=== PATIENT | female | born 1995 | race Caucasian/White ===

== ENCOUNTER → 2017-10-23 | Outpatient (CLI) | payer BC ==
[2017-10-23 18:15] LABS: Basophils % (A) 1 %; Eosinophils # (A) 0.1 k/uL (0-0.7); Eosinophils % (A) 2 %; HCT 42.8 % (34.0-46.0); HGB 13.1 gm/dL (11.4-16.0); Lymphocytes # (A) 1.5 k/uL (1.0-4.8); Lymphocytes % (A) 31 %; MCHC 30.6 g/dL (31.0-37.0); MCV 91.4 fL (80.0-100.0); Mean Platelet Volume 8.2; Monocytes # (A) 0.3 k/uL (0-1.0); Monocytes % (A) 6 %; Neutrophils # (A) 2.9 k/uL (1.3-7.7); Neutrophils % (A) 59 %; Platelet Count 341 k/uL (150-450); RBC 4.68 m/uL (3.80-5.40); RDW 12.7 % (11.5-15.5); WBC 4.8 k/uL (3.8-10.6)
[2017-10-23 18:34] LABS: ALT 19 U/L (9-52); AST 22 U/L (14-36); Albumin 4.3 g/dL (3.5-5.0); Alkaline Phosphatase 58 U/L (38-126); Anion Gap 10 mmol/L; Blood Urea Nitrogen 14 mg/dL (7-17); Calcium 9.5 mg/dL (8.4-10.2); Carbon Dioxide 27 mmol/L (22-30); Chloride 102 mmol/L (98-107); Cholesterol 133 mg/dL (<200); Glucose 79 mg/dL (74-99); HDL Cholesterol 60 mg/dL (40-60); LDL Cholesterol,Calculated 65 mg/dL (0-99); Potassium 4.6 mmol/L (3.5-5.1); Sodium 139 mmol/L (137-145); Total Bilirubin 0.7 mg/dL (0.2-1.3); Triglycerides 38 mg/dL (<150)
[2017-10-24 00:56] LABS: Vitamin D 25 Hydroxy 9.9 ng/mL (30.0-100.0)
[2017-10-24 01:15] LABS: HIV AB P24 Non-Reactive (Non-Reactive); HIV P24 AG Non-Reactive (Non-Reactive)
[2017-10-24 01:45] LABS: Hepatitis A Antibody IgM Non-Reactive (Non-Reactive); Hepatitis B Core IgM Non-Reactive (Non-Reactive)
== END | disposition home or self-care (01) ==
LOC: MMGSC 09:59
PROVIDERS: ATTEND Family Medicine
DX: Z00.00 Encounter for general adult medical examination without abnormal findings (principal)
CPT/HCPCS: 36415; 80053; 80061; 80074; 82306; 82607; 84443; 85025; 87390

== ENCOUNTER → 2023-03-28 | Outpatient (CLI) | payer BC | END | disposition home or self-care (01) | LOC: LABWHC1 11:53 | PROVIDERS: ATTEND Obstetrics & Gynecology Obstetrics | DX: O20.0 Threatened abortion (principal); Z3A.00 Weeks of gestation of pregnancy not specified | CPT/HCPCS: 36415; 84702 ==

== ENCOUNTER → 2023-04-01 | Outpatient (CLI) | payer BC | END | disposition home or self-care (01) | LOC: LABWHC1 15:18 | PROVIDERS: ATTEND Obstetrics & Gynecology Obstetrics | DX: O20.0 Threatened abortion (principal); Z3A.00 Weeks of gestation of pregnancy not specified | CPT/HCPCS: 36415; 84702 ==

== ENCOUNTER → 2023-04-05 | Outpatient (CLI) | payer BC ==
[2023-04-05 16:02] LABS: Blood Urea Nitrogen 12.3 mg/dL (9.0-27.0)
[2023-04-05 16:03] LABS: ALT 12 U/L (8-44); AST 18 U/L (13-35)
[2023-04-05 16:07] LABS: HCT 43.2 % (37.2-46.3); HGB 14.2 d/dL (12.0-15.0); MCH 29.6 pg (27.0-32.0); MCHC 32.9 d/dL (32.0-37.0); MCV 90.2 FL (80.0-97.0); Mean Platelet Volume 10.5 FL (9.5-12.2); NRBC Per 100 WBC 0 X 10*3/uL (0.00-0.01); Platelet Count 362 X 10*3/uL (140-440); RBC 4.79 X 10*6/uL (4.10-5.20); RDW 12.4 % (11.5-14.5); WBC 10.49 X 10*3/uL (4.50-10.00)
== END | disposition home or self-care (01) ==
LOC: LABWHC1 08:47
PROVIDERS: ATTEND Obstetrics & Gynecology Obstetrics
DX: O00.109 Unspecified tubal pregnancy without intrauterine pregnancy (principal); Z3A.00 Weeks of gestation of pregnancy not specified
CPT/HCPCS: 36415; 82565; 84450; 84460; 84520; 84702; 85027

== ENCOUNTER → 2023-04-05 | Outpatient (CLI) | payer BC ==
[~2023-04-05] MED LIST: METHOTREXATE SODIUM (PF) 25 MG/ML 2 ML VIAL IM NR
[2023-04-05 10:24] VITALS: BP 123/83; PULSE 80; RESP 16; TEMP 98.2
== END ==
LOC: PROCWHC3 10:10
PROVIDERS: ATTEND Obstetrics & Gynecology Obstetrics
DX: O00.109 Unspecified tubal pregnancy without intrauterine pregnancy (principal)
CPT/HCPCS: 96401; J9260; 96402

== ENCOUNTER → 2023-04-08 | Outpatient (CLI) | payer BC | END | disposition home or self-care (01) | LOC: LABWHC1 15:09 | PROVIDERS: ATTEND Obstetrics & Gynecology Obstetrics | DX: O00.109 Unspecified tubal pregnancy without intrauterine pregnancy (principal); Z3A.00 Weeks of gestation of pregnancy not specified | CPT/HCPCS: 36415; 84702 ==

== ENCOUNTER → 2023-04-11 | Outpatient (CLI) | payer BC ==
[2023-04-11 20:28] LABS: ALT 12 U/L (8-44); AST 19 U/L (13-35); Blood Urea Nitrogen 11.7 mg/dL (9.0-27.0); HCG,Quantitative Serum 47.6 mIU/mL (0.0-6.0)
[2023-04-11 21:17] LABS: HCT 39.3 % (37.2-46.3); HGB 12.5 d/dL (12.0-15.0); MCH 29.2 pg (27.0-32.0); MCHC 31.8 d/dL (32.0-37.0); MCV 91.8 FL (80.0-97.0); Mean Platelet Volume 10.7 FL (9.5-12.2); NRBC Per 100 WBC 0 X 10*3/uL (0.00-0.01); Platelet Count 317 X 10*3/uL (140-440); RBC 4.28 X 10*6/uL (4.10-5.20); RDW 12.5 % (11.5-14.5); WBC 9.24 X 10*3/uL (4.50-10.00)
== END | disposition home or self-care (01) ==
LOC: LABWHC1 15:13
PROVIDERS: ATTEND Obstetrics & Gynecology Obstetrics
DX: O00.109 Unspecified tubal pregnancy without intrauterine pregnancy (principal); Z3A.00 Weeks of gestation of pregnancy not specified
CPT/HCPCS: 36415; 82565; 84450; 84460; 84520; 84702; 85027

== ENCOUNTER → 2023-04-19 | Outpatient (CLI) | payer BC | END | disposition home or self-care (01) | LOC: LABWHC1 14:53 | PROVIDERS: ATTEND Obstetrics & Gynecology Obstetrics | DX: O00.90 Unspecified ectopic pregnancy without intrauterine pregnancy (principal); Z3A.00 Weeks of gestation of pregnancy not specified | CPT/HCPCS: 36415; 84702 ==

== ENCOUNTER → 2023-05-10 | Outpatient (CLI) | payer BC | END | disposition home or self-care (01) | LOC: LABWHC1 15:45 | PROVIDERS: ATTEND Obstetrics & Gynecology Obstetrics | DX: O00.90 Unspecified ectopic pregnancy without intrauterine pregnancy (principal); Z3A.00 Weeks of gestation of pregnancy not specified | CPT/HCPCS: 36415; 84702 ==

== ENCOUNTER → 2024-03-25 | Outpatient (CLI) | payer BC ==
--- NOTE | 2024-03-25 14:57 | FL ---
EXAMINATION TYPE: FL hysterosalpingography DATE OF EXAM: 03/25/2024 HISTORY: Infertility. Informed consent was obtained and all the patient's questions were answered. Preliminary film of the pelvis reveals no distinct abnormality. A speculum was introduced and the external cervical os was l ocalize. The external cervical os was cleansed and a Betadine solution on 3 occasions. Hysterosalpi ngography catheter was introduced into the uterus and balloon insufflation device deployed. Approxim ately 12 cc of nonionic contrast was injected in a retrograde manner. The uterus has a normal size shape and appearance. No persistent uterine filling defects are seen. Both fallopian tubes fill with contrast normally. There is spill of contrast into the peritoneal cav ity bilaterally left greater than right. IMPRESSION: Normal hysterosalpingogram with bilateral spill of contrast into the peritoneal cavity.
== END | disposition home or self-care (01) ==
LOC: RADUSWWP 13:10
PROVIDERS: ATTEND Obstetrics & Gynecology Obstetrics
DX: N97.9 Female infertility, unspecified (principal); Z87.59 Personal history of other complications of pregnancy, childbirth and the puerperium
CPT/HCPCS: 58340; 74740; Q9967

== ENCOUNTER → 2024-04-29 | Outpatient (CLI) | payer BC ==
[2024-04-29 15:13] LABS: HCT 44.3 % (37.2-46.3); HGB 14.3 g/dL (12.0-15.0); MCH 29.1 pg (27.0-32.0); MCHC 32.3 g/dL (32.0-37.0); MCV 90.2 FL (80.0-97.0); Mean Platelet Volume 10.4 FL (9.5-12.2); NRBC Per 100 WBC 0 X 10*3/uL (0.00-0.01); Platelet Count 362 X 10*3/uL (140-440); RBC 4.91 X 10*6/uL (4.10-5.20); RDW 12.5 % (11.5-14.5); WBC 7.95 X 10*3/uL (4.50-10.00)
[2024-04-29 16:18] LABS: ALT 13 U/L (8-44); AST 18 U/L (13-35); Blood Urea Nitrogen 8.6 mg/dL (9.0-27.0)
== END | disposition home or self-care (01) ==
LOC: LABWHC1 09:40
PROVIDERS: ATTEND Obstetrics & Gynecology Obstetrics
DX: O00.109 Unspecified tubal pregnancy without intrauterine pregnancy
CPT/HCPCS: 36415; 82565; 84450; 84460; 84520; 84702; 85027; 86850; 86900; 86901

== ENCOUNTER → 2024-04-29 | Outpatient (CLI) | payer BC ==
[2024-04-29 12:21] VITALS: BP 105/73; PULSE 84; RESP 16; TEMP 97.9
[2024-04-29] MEDS: METHOTREXATE SODIUM (PF) 25 MG/ML 2 ML VIAL IM NR (12:35)
== END ==
LOC: PROCWHC3 12:01
PROVIDERS: ATTEND Obstetrics & Gynecology Obstetrics
DX: O00.90 Unspecified ectopic pregnancy without intrauterine pregnancy (principal)
CPT/HCPCS: 96402; J9260

== ENCOUNTER → 2024-05-02 | Outpatient (CLI) | payer BC | END | disposition home or self-care (01) | LOC: LABWHC1 08:55 | PROVIDERS: ATTEND Obstetrics & Gynecology Obstetrics | DX: O00.109 Unspecified tubal pregnancy without intrauterine pregnancy | CPT/HCPCS: 36415; 84702 ==

== ENCOUNTER → 2024-05-05 | Outpatient (CLI) | payer BC ==
[2024-05-05 16:59] LABS: HCT 41.9 % (37.2-46.3); HGB 13.6 g/dL (12.0-15.0); MCH 29.1 pg (27.0-32.0); MCHC 32.5 g/dL (32.0-37.0); MCV 89.7 FL (80.0-97.0); Mean Platelet Volume 10.6 FL (9.5-12.2); NRBC Per 100 WBC 0 X 10*3/uL (0.00-0.01); Platelet Count 329 X 10*3/uL (140-440); RBC 4.67 X 10*6/uL (4.10-5.20); RDW 12.6 % (11.5-14.5); WBC 9.18 X 10*3/uL (4.50-10.00)
[2024-05-05 17:02] LABS: ALT 11 U/L (8-44); AST 16 U/L (13-35); Blood Urea Nitrogen 9.2 mg/dL (9.0-27.0)
== END | disposition home or self-care (01) ==
LOC: LABWHC1 11:02
PROVIDERS: ATTEND Obstetrics & Gynecology Obstetrics
DX: O00.109 Unspecified tubal pregnancy without intrauterine pregnancy (principal)
CPT/HCPCS: 36415; 82565; 84450; 84460; 84520; 84702; 85027

== ENCOUNTER → 2024-05-07 | Outpatient (CLI) | payer BC | END | disposition home or self-care (01) | LOC: LABWHC1 10:20 | PROVIDERS: ATTEND Obstetrics & Gynecology Obstetrics | DX: O00.90 Unspecified ectopic pregnancy without intrauterine pregnancy (principal) | CPT/HCPCS: 36415; 84702 ==